=== PATIENT | male | born 1960 | race Caucasian/White ===

== ENCOUNTER 2019-01-24 14:14 | Inpatient (IN) | payer MEDICAID ==
[~2019-01-24] VITALS: Ht 182.9 cm; Wt 103.4 kg
[2019-01-24 15:26] LABS: PLATELET COUNT 187 x10^3mcL (130-400); RED CELL DISTRIBUTION WIDTH 13.1 % (11.5-14.5)
[2019-01-24 15:30] LABS: CALCIUM 7.9 mg/dL (8.5-10.1); CARBON DIOXIDE 22.5 mmol/L (21-32); CREATININE SERUM 2.8 mg/dL (0.7-1.3); POTASSIUM SERUM 3.9 mmol/L (3.5-5.1)
[2019-01-24 15:35] LABS: BILIRUBIN TOTAL 1.3 mg/dL (0.20-1.00); TOTAL PROTEIN, SERUM 6.3 g/dL (6.4-8.2)
[2019-01-24 16:23] LABS: BAND NEUTROPHIL 6 % (0-10); MONOCYTE 2 % (0-7); PLATELET MORPHOLOGY PLATELETS NORMAL; SEGMENTED NEUTROPHILS 88 % (37-75); rbc morphology (normal/abnorm) NORMAL (NORMAL)
[2019-01-24 18:24] VITALS: BP 113/66
[2019-01-24 20:34] VITALS: BP 143/95
[2019-01-25 05:18] VITALS: BP 100/55
[2019-01-25 06:42] LABS: PLATELET COUNT 161 x10^3mcL (130-400); RED CELL DISTRIBUTION WIDTH 13.3 % (11.5-14.5)
[2019-01-25 07:17] LABS: CALCIUM 7.7 mg/dL (8.5-10.1); CARBON DIOXIDE 20.9 mmol/L (21-32); CREATININE SERUM 2.7 mg/dL (0.7-1.3); MAGNESIUM 1.3 mg/dL (1.8-2.4); PHOSPHOROUS 1.6 mg/dL (2.5-4.9); POTASSIUM SERUM 3.7 mmol/L (3.5-5.1)
[2019-01-25 09:16] VITALS: BP 101/60
[2019-01-25 11:30] LABS: BAND NEUTROPHIL 30 % (0-10); BASOPHIL 0 % (0-2); MONOCYTE 1 % (0-7); PLATELET MORPHOLOGY GIANT PLATELET SEEN; SEGMENTED NEUTROPHILS 65 % (37-75); rbc morphology (normal/abnorm) NORMAL (NORMAL)
[2019-01-25 12:31] VITALS: BP 107/46
[2019-01-25 12:37] LABS: UA SPECIFIC GRAVITY <=1.005 (1.005-1.035); microscopic required? YES; urine erythrocyte TRACE (NEGATIVE)
[2019-01-25 16:30] VITALS: BP 128/58
[2019-01-25 21:26] VITALS: BP 117/68
[2019-01-26 05:57] VITALS: BP 115/70
[2019-01-26 07:28] LABS: CALCIUM 8.1 mg/dL (8.5-10.1); CARBON DIOXIDE 24.4 mmol/L (21-32); CREATININE SERUM 2.4 mg/dL (0.7-1.3); POTASSIUM SERUM 4.2 mmol/L (3.5-5.1)
[2019-01-26 07:56] LABS: BASOPHIL % 0.1 % (0-2); PLATELET COUNT 151 x10^3mcL (130-400); RED CELL DISTRIBUTION WIDTH 13.8 % (11.5-14.5)
[2019-01-26 09:59] VITALS: BP 132/87
[2019-01-26 12:33] VITALS: BP 143/86
[2019-01-26 16:32] VITALS: BP 116/71
[2019-01-29 10:34] VITALS: Ht 182.9 cm; Wt 103.4 kg
== END 2019-01-26 17:11 | disposition left against medical advice (07) | DRG 720 ==
LOC: ED 14:14 → EDBEDREQ 15:48 → DU 15:48
PROVIDERS: Emergency Medicine; ADMIT Family Medicine
DX: A41.9 Sepsis, unspecified organism (principal); N17.9 Acute kidney failure, unspecified; E44.0 Moderate protein-calorie malnutrition; L03.116 Cellulitis of left lower limb; E86.0 Dehydration; E87.1 Hypo-osmolality and hyponatremia
CPT/HCPCS: C9113; J2270; J2543; J3370; J3475; J7030; J7042; Q0092